=== PATIENT | male | born 1995 | race Caucasian/White ===

== ENCOUNTER 2024-12-29 13:28 | Emergency (ER) | payer SELFPAY ==
[2024-12-29] MEDS: Diphtheria,Pertussis(Acell),Tetanus Vaccine 0.5 ML Syringe IM ONE (13:54)
== END 2024-12-29 14:08 | disposition home or self-care (01) ==
LOC: DL.ED 13:28
DX: S61.250A Open bite of right index finger without damage to nail, initial encounter (principal); Z23 Encounter for immunization; W54.0XXA Bitten by dog, initial encounter
CPT/HCPCS: 90471; 90715; 99282; 99283-25